=== PATIENT | male | born 1940 | race Caucasian/White ===

== ENCOUNTER 2019-08-28 09:41 | Outpatient (CLI) | payer MEDICARE, OTHER, SELFPAY ==
--- NOTE | 2019-08-28 10:15 | XR_ITS ---
WS: [id number] XR KUB [id number] REASON FOR EXAM: RENAL STONE FINDINGS: Comparisons were made from May 26, 2016. There is postop changes in the mid area suggesting aortic surgery. There is fecal stasis throughout the colon. An ill-defined calcified areas seen at the L4 level on th e right which may represent a stone. The left kidney shows a calcified density consistent with a renal calculus. Measures 4.52 mm An ill-defined calcified area adjacent to the L4 vertebra transverse process on the right weren't germán e if this is a stone or not.. XR/XR KUB [id number] IMPRESSION: Left renal calculus measures 4.52 mm.
== END 2019-08-28 09:42 | disposition home or self-care (01) ==
LOC: RAD 09:54
PROVIDERS: PCP Family Medicine; Visit Provider Urology
DX: N20.0 Calculus of kidney (principal)
CPT/HCPCS: 74018; 81001

== ENCOUNTER → 2020-03-18 12:49 | Outpatient (BNVA) | payer MEDICARE, OTHER, SELFPAY | PROVIDERS: PCP Family Medicine; Referring Provider Dermatology; Visit Provider Dermatology | DX: Z85.828 Personal history of other malignant neoplasm of skin (principal); L57.0 Actinic keratosis; D48.9 Neoplasm of uncertain behavior, unspecified; L82.1 Other seborrheic keratosis | CPT/HCPCS: 11102; 17000; 17003; 88304; 88305; 99203; 99204 ==

== ENCOUNTER 2021-04-27 07:46 | Outpatient (CLI) | payer MEDICARE, OTHER, SELFPAY ==
--- NOTE | 2021-04-27 07:49 | XR_ITS ---
WS: [id number] KUB, AP view, 04/27/2021 Clinical Data: renal stone Comparison: KUB, 08/28/2019. Findings: No abnormal intraabdominal masses or calcifications are seen. There is no dilatated small bowel or ev idence of obstruction. There is a large amount of fecal material throughout the colon. There are sutures overlying the lumba r vertebral bodies and scattered in the left upper quadrant. There is a phlebolith in the right true pelvis. XR/XR KUB [id number] Impression: Large amount of fecal material throughout the colon.
== END 2021-04-27 07:47 | disposition home or self-care (01) ==
PROVIDERS: PCP Family Medicine; Visit Provider Urology
DX: N20.0 Calculus of kidney (principal); N40.1 Benign prostatic hyperplasia with lower urinary tract symptoms
CPT/HCPCS: 74018; 81003

== ENCOUNTER 2022-05-07 10:05 | Outpatient (CLI) | payer MEDICARE, OTHER, SELFPAY ==
--- NOTE | 2022-05-07 | US_ITS ---
WS: [id number] RENAL ULTRASOUND HISTORY: CKD, history of LEFT nephrectomy. COMPARISON: 05/26/2016 TECHNIQUE: 2-D and color Doppler imaging of the kidney submitted. Right kidney: 12.8 cm x 6.0 cm x 6.8 cm. Mild compensatory hypertrophy of the kidney. No cortical thinning. No hydronephrosis or mass. Left kidney: Absent kidney. No mass in the renal bed. Aorta: Normal. Urinary Bladder: Well-distended bladder. Prostate gland enlargement encroaching into the base of the urinary bladder. Prostate measures 4.3 x 3.9 x 4.6 cm. US/US renal BI* [id number] IMPRESSION: 1. Normal RIGHT kidney with mild compensatory hypertrophy. 2. Absent LEFT kidney. 3. Prostate gland enlargement.
== END 2022-05-07 10:06 | disposition home or self-care (01) ==
LOC: RAD 10:07
PROVIDERS: PCP Family Medicine; Visit Provider Internal Medicine
DX: N18.31 Chronic kidney disease, stage 3a (principal); N40.0 Benign prostatic hyperplasia without lower urinary tract symptoms; Z90.5 Acquired absence of kidney
CPT/HCPCS: 76770

== ENCOUNTER 2022-07-28 12:37 | Outpatient (CLI) | payer MEDICARE, OTHER, SELFPAY ==
--- NOTE | 2022-07-28 12:44 | MR_ITS ---
WS: [id number] MRI HEAD WITHOUT CONTRAST TECHNIQUE: Sagittal T1, T2 axial, T2 axial FLAIR, axial and coronal T1 images, axial susceptibility w eighted imaging, axial diffusion weighted images, and coronal T2 images were obtained. CLINICAL INFORMATION: MEMORY DEFICIT COMPARISON: None. FINDINGS: No evidence of restricted diffusion to suggest acute ischemia. Ventricular system and basilar cistern s are patent. Mild to moderate small vessel changes with moderate parenchymal volume loss. This is sl ightly worse in the parietal lobes bilaterally. Normal posterior fossa. Normal vascular flow voids at the skull base. No extra-axial fluid collections. No evidence of mass or mass effect. Mild mucosal t hickening in the paranasal sinuses. Mastoid air cells well aerated. No hemosiderin on susceptibly weighted images. Normal optic chiasm and pituitary infundibulum. Modera te atrophy temporal lobes and hippocampal formations. Normal cavernous sinuses and Meckel's cave. MR/MR head wo con* [id number] IMPRESSION: 1. No evidence of restricted diffusion to suggest acute ischemia. 2. Mild to moderate small vessel changes with moderate parenchymal volume loss more prominent in the parietal lobes. 3. Moderate atrophy temporal lobes and hippocampal formations LEFT greater katherine n RIGHT. 4. No hemosiderin on susceptibly weighted images. 5. No other acute findings.
== END 2022-07-28 12:38 | disposition home or self-care (01) ==
LOC: RAD 12:38
PROVIDERS: PCP Family Medicine; Visit Provider Emergency Medicine Emergency Medical Services
DX: R41.3 Other amnesia (principal); G31.89 Other specified degenerative diseases of nervous system
CPT/HCPCS: 70551

== ENCOUNTER 2022-08-03 14:04 | Outpatient (CLI) | payer MEDICARE, OTHER, SELFPAY ==
--- NOTE | 2022-08-03 | US_ITS ---
WS: [id number] THYROID ULTRASOUND HISTORY: NODULES COMPARISON: None available. Right lobe: 1.8 cm x 2.4 cm x 4.8 cm (w x ap x l). Volume: 10.5 cm3. Mildly enlarged heterogeneous thyroid. There are a few very small hypoechoic nodules. No mass or echo genic foci. Left lobe: 1.4 cm x 1.9 cm x 4.7 cm (w x ap x l). Volume: 6.4 cm3. Normal size gland. Spongiform nodule inferior pole measures 11 x 5 x 9 mm. There is a colloid cyst al so. Hypoechoic nodule measuring 8 x 6 x 9 mm in the LEFT isthmus. No echogenic foci. Isthmus: 0.4 cm. US/US thyroid [id number] IMPRESSION: 1. Mild thyromegaly. 2. Likely benign-appearing nodules LEFT thyroid as described above. No FNA nec essary at this time. Consider yearly thyroid ultrasound evaluation.
== END 2022-08-03 14:05 | disposition home or self-care (01) ==
PROVIDERS: PCP Family Medicine; Visit Provider Family Medicine
DX: E04.2 Nontoxic multinodular goiter (principal)
CPT/HCPCS: 76536

== ENCOUNTER 2023-05-19 09:07 | Outpatient (CLI) | payer MEDICARE, OTHER, SELFPAY ==
[2023-05-19 09:39] LABS: Basophils % 0.4 %; Eosinophils # 0.5 10^3/uL (0.0-0.8); Eosinophils % 6.2 %; Hematocrit 50.2 % (37-53); Lymphocytes % 14.1 %; Mean Corpuscular HGB Conc 33.9 g/dL (30-55); Mean Corpuscular Hemoglobin 30.5 pg (27-33); Mean Corpuscular Volume 90.1 fl (82-101); Mean Platelet Volume 9.9 fL (7.4-10.4); Monocytes # 0.6 10^3/uL (0.2-0.9); Neutrophils # 5.15 10^3/uL (1.8-7.7); Neutrophils % 70.8 %; Nucleated Red Blood Cells % 0 %; Platelet Count 144 10^3/cmm (157-399); Red Blood Count 5.57 10^6/uL (3.85-5.65); Red Cell Distribution Width 12.5 % (12.1-15.1); White Blood Count 7.28 10^3/uL (3.29-11.43)
[2023-05-19 10:02] LABS: Albumin Level 4.2 g/dL (3.5-5.2); Anion Gap 12.1 (5-19); Blood Urea Nitrogen 16 mg/dL (8-23); Carbon Dioxide 30 mmol/L (22-29); Chloride 105 mmol/L (98-107); Glucose 72 mg/dL (65-115); Phosphorus 2.8 mg/dL (2.5-4.5); Potassium 4.1 mmol/L (3.5-5.1); Sodium 143 mmol/L (136-145)
[2023-05-19 10:03] LABS: Calcium 9.8 mg/dL (8.5-10.5)
[2023-05-19 10:09] LABS: Creatinine Urine, Random 93 mg/dL (39-259); Microalbum Creatinine Ratio Ur 11 mg/dL (0-20); Microalbumin Random Urine 1 ug/dL (0-20)
[2023-05-19 10:09] LABS: Parathyroid Hormone 53.8 pg/mL (15-65)
== END 2023-05-19 09:08 | disposition home or self-care (01) ==
LOC: LAB 09:13
PROVIDERS: PCP Family Medicine; Visit Provider Internal Medicine
DX: N18.31 Chronic kidney disease, stage 3a (principal)
CPT/HCPCS: 36415; 80069; 82044; 82310; 83970; 85025

== ENCOUNTER → 2023-10-27 08:38 | Outpatient (BNVA) | payer MEDICARE, OTHER, SELFPAY | PROVIDERS: PCP Family Medicine; Visit Provider Dermatology | DX: C44.519 Basal cell carcinoma of skin of other part of trunk (principal) | CPT/HCPCS: 11603; 13101 ==

== ENCOUNTER 2023-12-01 12:27 | Outpatient (CLI) | payer OTHER, SELFPAY ==
[2023-12-01 13:22] LABS: Add Urine Microscopic? NO; Charge for UA Resulting for Rev
[2023-12-01 13:43] LABS: Alanine Aminotransferase 17 U/L (0-41); Alkaline Phosphatase 78 U/L (40-130); Aspartate Amino Transferase 15 U/L (0-40); Blood Urea Nitrogen 18 mg/dL (8-23); Carbon Dioxide 25 mmol/L (22-29); Chloride 105 mmol/L (98-107); Globulin 2.3 g/dL (1.3-4.6); Glucose 104 mg/dL (65-115); Osmolality Calculated 290 mOsm/kg (285-295); Sodium 139 mmol/L (136-145); Total Bilirubin 0.9 mg/dL (0.15-1.2); Total Protein 6.3 g/dL (6.6-8.7)
[2023-12-01 13:45] LABS: Specific Gravity, Urine 1.005 (1.005-1.030); Urine Appearance Clear (CLEAR); Urine Color Yellow (Yellow); pH Urine 7 (5-7)
[2023-12-01 13:46] LABS: Bilirubin Urine Neg (Negative); Blood Urine Neg (Negative); Glucose Urine UA Norm (Normal); Ketones Urine Negative (Negative); Leukocyte Esterase Urine Negative (Negative); Nitrate Urine Negative (Negative); Protein Urine Neg (Negative); Urobilinogen Urine Norm (Negative)
== END 2023-12-01 12:28 | disposition home or self-care (01) ==
PROVIDERS: PCP Family Medicine; Visit Provider Chiropractor
DX: I10 Essential (primary) hypertension (principal); J61 Pneumoconiosis due to asbestos and other mineral fibers
CPT/HCPCS: 36415; 80053; 81003; 94010

== ENCOUNTER → 2024-04-18 10:54 | Outpatient (BNVA) | payer MEDICARE, OTHER, SELFPAY | PROVIDERS: PCP Family Medicine; Visit Provider Nurse Practitioner Family | DX: L82.1 Other seborrheic keratosis (principal); D22.5 Melanocytic nevi of trunk; L81.4 Other melanin hyperpigmentation; L57.8 Other skin changes due to chronic exposure to nonionizing radiation; L57.0 Actinic keratosis; Z85.828 Personal history of other malignant neoplasm of skin | CPT/HCPCS: 17000; 99213 ==

== ENCOUNTER 2024-05-03 08:45 | Outpatient (CLI) | payer OTHER, SELFPAY ==
[2024-05-03 09:43] LABS: Bilirubin Urine Negative (Negative); Blood Urine Negative (Negative); Glucose Urine UA Negative (Normal); Ketones Urine Negative (Negative); Leukocyte Esterase Urine Negative (Negative); Nitrate Urine Negative (Negative); Protein Urine Negative (Negative); Specific Gravity, Urine 1.019 (1.005-1.030); Urine Appearance Clear (CLEAR); Urine Color Yellow (Yellow); Urobilinogen Urine 0.2 mg/dL (Negative)
[2024-05-03 09:48] LABS: Add Urine Microscopic? YES; Bacteria Urine None Seen /hpf; Hyaline Casts Urine 0-4 /lpf; RBC Urine 0-2 /hpf (0-2); Squamous Epithelial Cell Urine 0-5 /hpf (0-5); WBC Urine 0-5 /hpf (0-5)
[2024-05-03 09:53] LABS: Alanine Aminotransferase 17 U/L (0-41); Albumin Level 4.3 g/dL (3.5-5.2); Alkaline Phosphatase 88 U/L (40-130); Anion Gap 14.2 (5-19); Aspartate Amino Transferase 16 U/L (0-40); Blood Urea Nitrogen 20 mg/dL (8-23); Calcium 9.4 mg/dL (8.5-10.5); Carbon Dioxide 28 mmol/L (22-29); Chloride 104 mmol/L (98-107); Glucose 118 mg/dL (65-115); Osmolality Calculated 298 mOsm/kg (285-295); Potassium 4.2 mmol/L (3.5-5.1); Sodium 142 mmol/L (136-145); Total Bilirubin 0.6 mg/dL (0.15-1.2); Total Protein 6.3 g/dL (6.6-8.7)
== END 2024-05-03 08:46 | disposition home or self-care (01) ==
LOC: LAB 08:48
PROVIDERS: PCP Family Medicine; Visit Provider Chiropractor
DX: N18.9 Chronic kidney disease, unspecified (principal)
CPT/HCPCS: 36415; 80053; 81001

== ENCOUNTER 2024-05-22 08:58 | Outpatient (CLI) | payer OTHER, SELFPAY ==
[2024-05-22 09:45] LABS: Basophils % 0.2 %; Eosinophils # 0.4 10^3/uL (0.0-0.8); Eosinophils % 5.2 %; Hematocrit 50.6 % (37-53); Lymphocytes % 11.3 %; Mean Corpuscular HGB Conc 33.6 g/dL (30-55); Mean Corpuscular Hemoglobin 29.9 pg (27-33); Mean Corpuscular Volume 89.1 fl (82-101); Monocytes # 0.5 10^3/uL (0.2-0.9); Monocytes % 5.9 %; Neutrophils # 6.49 10^3/uL (1.8-7.7); Nucleated Red Blood Cells % 0 %; Platelet Count 142 10^3/cmm (157-399); Red Blood Count 5.68 10^6/uL (3.85-5.65); Red Cell Distribution Width 12.6 % (12.1-15.1); White Blood Count 8.43 10^3/uL (3.29-11.43)
[2024-05-22 10:01] LABS: Creatinine Urine, Random 129 mg/dL (39-259); Microalbum Creatinine Ratio Ur 8 mg/dL (0-20); Microalbumin Random Urine 1 ug/dL (0-20)
[2024-05-22 10:03] LABS: Albumin Level 4.1 g/dL (3.5-5.2); Blood Urea Nitrogen 19 mg/dL (8-23); Calcium 9.4 mg/dL (8.5-10.5); Calcium 9.5 mg/dL (8.5-10.5); Carbon Dioxide 27 mmol/L (22-29); Chloride 104 mmol/L (98-107); Glucose 134 mg/dL (65-115); Phosphorus 2.2 mg/dL (2.5-4.5); Sodium 142 mmol/L (136-145)
[2024-05-22 10:10] LABS: Parathyroid Hormone 48.6 pg/mL (15-65)
[2024-05-22 10:18] LABS: 25 Hydroxy Vitamin D 47 ng/mL (30-100)
== END 2024-05-22 08:59 | disposition home or self-care (01) ==
PROVIDERS: PCP Family Medicine; Visit Provider Internal Medicine Nephrology
DX: N18.31 Chronic kidney disease, stage 3a (principal); Z90.5 Acquired absence of kidney
CPT/HCPCS: 36415; 80069; 82044; 82306; 82310; 83970; 85025

== ENCOUNTER 2024-06-08 09:02 | Outpatient (CLI) | payer OTHER, SELFPAY ==
--- NOTE | 2024-06-08 09:10 | MRR_ITS ---
PROCEDURE INFORMATION: Exam: MR Head Without Contrast Exam date and time: 06/08/2024 9:40 AM Age: 83 years old Clinical indication: Altered mental status/memory loss; Patient HX: HX of kidney cancer, memory loss, difficulty speaking, ; additional info: Memory deficit TECHNIQUE: Imaging protocol: Magnetic resonance imaging of the head without contrast. COMPARISON: MR head wo con* [id number] 07/28/2022 1:15 PM FINDINGS: Limitations: Suboptimal evaluation of multiple sequences secondary to patient motion. Brain: Mild nonspecific periventricular and subcortical T2 hyperintensity which may be related to microvascular ischemic changes. No areas of reduced diffusion to suggest acute ischemic infarct. Cerebral ventricles: The ventricles and sulci are prominent in size compatible with moderate atrophy. Bones: Unremarkable. Paranasal sinuses: No fluid levels. Mastoid air cells: Normal as visualized. No mastoid effusion. Orbital cavities: Orbits and globes are intact. Soft tissues: Unremarkable. MR/MR head wo con* [id number] IMPRESSION: No acute infarct.
--- NOTE | 2024-06-08 09:10 | USCV_ITS ---
Edelmira Tamiko Age: 83 Gender: M : 1940 Exam Date: 06/08/2024 10:38 Ordering Phys: Claire Kirkpatrick MD Technologist: [employer] Exam Location: [facility] [place] Indication: memory loss Risk Factors: Previous Vascular Surgery: Right Brachial BP: / Left Brachial BP: / Right Left Velocity (cm/s) Spectral Plaque Velocity (cm/s) Spectral Plaque Syst/Diast Broadening Syst/Diast Broadening 80.20/ 18.00 None Prox CCA 89.30 / 17.00 59.50/ 16.70 None Mid CCA 90.80 / 16.80 44.10/ 13.10 Distal CCA 50.60 / 11.70 42.90/ 10.70 Prox ICA 56.00 / 19.90 49.20/ 17.00 Mid ICA 66.00 / 24.10 65.40/ 22.40 Distal ICA 59.10 / 20.60 71.30 ECA 61.60 1.50 ICA/CCA 1.30 Antegrade Vertebral Antegrade 30.90/ 8.30 cm/s 24.50/ 5.90 cm/s Tri Subclavian Tri 112.3 58.70 0 FINDINGS Comparison: none available. No significant elevation of systolic or diastolic velocities. Waveforms are normal. Mild plaque at the bifurcations. CONCLUSIONS Bilateral ICA stenosis less than 50%. Minimal carotid atherosclerosis. Dr. Rena Xiao DO (Electronically Signed) Final Date: 08 June 2024 11:53 S
== END 2024-06-08 09:03 | disposition home or self-care (01) ==
PROVIDERS: PCP Family Medicine; Visit Provider Family Medicine
DX: D04.9 Carcinoma in situ of skin, unspecified (principal); Z77.29 Contact with and (suspected) exposure to other hazardous substances; A04.71 Enterocolitis due to Clostridium difficile, recurrent; I10 Essential (primary) hypertension; M79.7 Fibromyalgia
CPT/HCPCS: 70551; 93880

== ENCOUNTER 2024-07-04 08:59 | Emergency (ER) | payer OTHER, SELFPAY ==
[2024-07-04 09:20] VITALS: BP 100/55; PULSE 75; RESP 17; TEMP 37.4; O2SAT 93; BMI 23.0
--- NOTE | 2024-07-04 10:06 | XRR_ITS ---
PROCEDURE INFORMATION: Exam: XR Chest Exam date and time: 07/04/2024 10:24 AM Age: 83 years old Clinical indication: Cough and shortness of breath; Additional info: Possible sepsis TECHNIQUE: Imaging protocol: Radiologic exam of the chest. Views: 1 view. COMPARISON: CR XR KUB [id number] 04/27/2021 8:01 AM FINDINGS: Lungs: Mild right basilar atelectasis. No focal consolidation. Pleural spaces: No significant pleural effusion. No definitive pneumothorax. Heart/Mediastinum: Cardiomediastinal silhouette is unremarkable. Vasculature: Mild tortuosity of the descending thoracic aorta. Bones/joints: Unremarkable. XR/XR chest 1V portable [id number] IMPRESSION: No acute cardiopulmonary disease.
[2024-07-04 10:30] LABS: Basophils % 0.1 %; Eosinophils % 0.1 %; Hematocrit 44.5 % (37-53); Lymphocytes # 0.5 10^3/uL (0.8-4.8); Lymphocytes % 6.7 %; Mean Corpuscular HGB Conc 34.2 g/dL (30-55); Mean Corpuscular Hemoglobin 30.3 pg (27-33); Mean Corpuscular Volume 88.6 fl (82-101); Mean Platelet Volume 10.4 fL (7.4-10.4); Monocytes # 0.8 10^3/uL (0.2-0.9); Monocytes % 10.6 %; Neutrophils # 5.92 10^3/uL (1.8-7.7); Neutrophils % 82.2 %; Nucleated Red Blood Cells % 0 %; Platelet Count 122 10^3/cmm (157-399); Red Blood Count 5.02 10^6/uL (3.85-5.65); Red Cell Distribution Width 12.5 % (12.1-15.1)
[2024-07-04 10:39] VITALS: BP 125/71; PULSE 86
[2024-07-04 10:39] LABS: Lactic Sepsis W/Reflex 1.1 mmol/L (0.5-2.2)
[2024-07-04] MEDS: sodium chloride 0.9% 2,245.29 ML 2245.29 ML IV (10:39)
[2024-07-04 10:40] LABS: Alanine Aminotransferase 41 U/L (0-41); Albumin Level 3.4 g/dL (3.5-5.2); Alkaline Phosphatase 64 U/L (40-130); Aspartate Amino Transferase 46 U/L (0-40); Blood Urea Nitrogen 22 mg/dL (8-23); Calcium 9.4 mg/dL (8.5-10.5); Carbon Dioxide 26 mmol/L (22-29); Chloride 96 mmol/L (98-107); Creatinine Clr Calc Pharmacy 45.7444; Globulin 2.4 g/dL (1.3-4.6); Glucose 126 mg/dL (65-115); Magnesium 1.9 mg/dL (1.7-2.3); Osmolality Calculated 283 mOsm/kg (285-295); Sodium 134 mmol/L (136-145); Total Bilirubin 0.8 mg/dL (0.15-1.2); Total Protein 5.8 g/dL (6.6-8.7)
--- NOTE | 2024-07-04 10:55 | ECG_ITS ---
[facility] Test Date: 2024-07-04 Pat Name: Tamiko Hickey Department: Room: Gender: Male [employer] Advisor: : 1940 Requested By: Vicky Tejeda Order Number: [id number] Mukesh MD: Juan J Jara M.D. Measurements Intervals [place] Rate: 61 P: 22 [place]: 151 QRS: 6 QRSD: 90 T: 35 QT: 303 QTc: 306 Interpretive Statements SINUS RHYTHM NONSPECIFIC T-WAVE ABNORMALITY No previous ECG available for comparison Electronically Signed On 07-04-2024 17:43:04 FILE KEEPER by Juan J Jara M.D. [email or web address]
--- NOTE | 2024-07-04 11:05 | W.ED.WEAKNES ---
HPI - Weakness General: Chief complaint: Weakness Stated complaint: flue like symptoms Time Seen by Provider: 07/04/24 10:04 History of Present Illness: This patient is an 83-year-old presenting with cough, weakness. He and his were on a cruise and he felt ill on , 7 days ago. He did not seek medical attention while on the cruise. He rested. On returning home he went to the [facility] on Tuesday and had a positive flu a test. He was also told that he had COPD which he had not known previously. They told him if he was getting worse he needed to come back to the ER immediately. Last night he started feeling worse. He had a subjective fever. His cough has worsened somewhat but he says that it is not quite as bad as it was when the illness for started. He has had a few episodes of diarrhea. No vomiting. He has been eating and drinking well. He denies any known history of heart or lung problems. He does have only 1 kidney. He is feeling weak and generally ill. [facility] ED PFS: Medical History (Updated 07/04/24 @ 12:51 by Vicky Augustin MD) History of nonmelanoma skin cancer Malignant neoplasm of kidney History of renal stone Surgical History History of hernia repair History of tonsillectomy History of nephrectomy, left Family History Father , at age 84 No problems noted. Mother , at age 94 No problems noted. Other Alzheimer disease Parkinson disease Social History Smoking and tobacco/nicotine status: never used tobacco/nicotine Alcohol intake: current Alcohol intake frequency: holidays/special occasions only Substance/Drug Use: never Adopted: No Caregiver/support person: No Lives independently: No Household members: spouse Marital status: Current occupational status: retired Physical Exam Const: COMMON NORMALS: no acute distress, patient oriented x3, no limitations and alert GENERAL APPEARANCE: cooperative and comfortable HENMT: HEAD & SCALP: normal to inspection FACE & SINUS: normal facial exam Eye: GENERAL EYE: appearance normal, both eyes and all related structures Neck/C-Spine: COMMON NORMALS: supple, no meningeal signs and no JVD Chest: COMMONS NORMALS: normal inspection of the chest Resp: COMMON NORMALS: normal respiratory effort and No use of accessory muscles OTHER: Rhonchi in bilateral bases Cardio: COMMON NORMALS: no JVD, regular rate, regular rhythm and No murmurs present (Cardio) RATE: regular rate RHYTHM: regular rhythm GI: COMMON NORMALS: Normal to inspection, nondistended, normoactive bowel sounds present, Soft to palpation and non-tender INSPECTION: Yes normal to inspection AUSCULTATION: Yes normoactive bowel sounds PALPATION: Yes Soft to palpation Back/Pelvis: COMMON NORMALS: thoracic and lumbar spine normal to inspection Extremity: COMMON NORMALS: normal to inspection Neuro: COMMON NORMALS: patient oriented x3, moves all extremities, no focal motor deficits and no sensory deficits noted SENSORIUM/ORIENTATION: Yes alert MENINGEAL SIGNS: Yes no meningeal signs OTHER: Hard of hearing, bilateral hearing aids Psych: COMMON NORMALS: mental status grossly normal, cooperative and normal affect Skin: COMMON NORMALS: no rashes or lesions noted and turgor normal GENERAL SKIN EXAM: no rashes or lesions noted and turgor normal Course Vital Signs: Vital signs: Vital Signs Temperature 99.4 F 07/04/24 09:20 Pulse Rate 68 07/04/24 13:08 Respiratory Rate 20 H 07/04/24 12:28 Blood Pressure 121/93 07/04/24 13:08 Pulse Oximetry 98 07/04/24 13:08 Oxygen Delivery Me thod Room Air 07/04/24 11:56 MDM - Weakness Medical Decision Making Positive flu test on Tuesday. Illness since . This would be day 7 of illness. He feels like he is getting worse although unable to really provide specifics on what is worse. His blood pressure in the waiting room was 100 systolic which is significantly low for him as he has a history of some hypertension. Because of this I started the sepsis protocol although at this point I do not have a bacterial infection source. No evidence of sepsis in this patient. His main complaint is his cough. Chest xray did not show a pneumonia - but given the worsening of symptoms on day 7 of his viral illness - concerning for possible secondary bacterial bronchitis so I will start antibiotics. Also meds for cough at home. Sat around 92% while in the ED. They do have a pulse oximeter at home and will keep an eye on his oxygenation. Lab Data 07/04/24 10:15 07/04/24 10:15 Radiology Impressions Chest X-Ray 07/04/24 10:06 IMPRESSION: No acute cardiopulmonary disease. Laboratory Results WBC 7.20 10^3/uL (3.29-11.43) 07/04/24 10:15 RBC 5.02 10^6/uL (3.85-5.65) 07/04/24 10:15 Hgb 15.20 g/dL (11.27-16.99) 07/04/24 10:15 Hct 44.5 % (37-53) 07/04/24 10:15 MCV 88.6 fl (82-101) 07/04/24 10:15 MCH 30.3 pg (27-33) 07/04/24 10:15 MCHC 34.2 g/dL (30-55) 07/04/24 10:15 RDW 12.5 % (12.1-15.1) 07/04/24 10:15 Plt Count 122 10^3/cmm (157-399) L 07/04/24 10:15 MPV 10.4 fL (7.4-10.4) 07/04/24 10:15 Neut % (Auto) 82.2 % 07/04/24 10:15 Lymph % (Auto) 6.7 % 07/04/24 10:15 Saline % (Auto) 10.6 % 07/04/24 10:15 Eos % (Auto) 0.1 % 07/04/24 10:15 Baso % (Auto) 0.1 % 07/04/24 10:15 Neut # (Auto) 5.92 10^3/uL (1.8-7.7) 07/04/24 10:15 Lymph # (Auto) 0.5 10^3/uL (0.8-4.8) L 07/04/24 10:15 Saline # (Auto) 0.8 10^3/uL (0.2-0.9) 07/04/24 10:15 Eos # (Auto) 0.0 10^3/uL (0.0-0.8) 07/04/24 10:15 Baso # (Auto) 0.0 10^3/uL (0.0-0.1) 07/04/24 10:15 Nucleated RBC % (auto) 0 % 07/04/24 10:15 Nucleated RBCs # 0.0 /100WBC 07/04/24 10:15 Sodium 134 mmol/L (136-145) L 07/04/24 10:15 Potassium 4.0 mmol/L (3.5-5.1) 07/04/24 10:15 Chloride 96 mmol/L (98-107) L 07/04/24 10:15 Carbon Dioxide 26 mmol/L (22-29) 07/04/24 10:15 Anion Gap 16.0 (5-19) 07/04/24 10:15 BUN 22 mg/dL (8-23) 07/04/24 10:15 Creatinine 1.3 mg/dL (0.7-1.2) H 07/04/24 10:15 GFR Calculation Not Reportable 07/04/24 10:15 Glucose 126 mg/dL (65-115) H 07/04/24 10:15 Calculated Osmolality 283 mOsm/kg (285-295) L 07/04/24 10:15 Lactic Acid 1.1 mmol/L (0.5-2.2) 07/04/24 10:15 Calcium 9.4 mg/dL (8.5-10.5) 07/04/24 10:15 Magnesium 1.9 mg/dL (1.7-2.3) 07/04/24 10:15 Total Bilirubin 0.8 mg/dL (0.15-1.2) 07/04/24 10:15 AST 46 U/L (0-40) H 07/04/24 10:15 ALT 41 U/L (0-41) 07/04/24 10:15 Alkaline Phosphatase 64 U/L (40-130) 07/04/24 10:15 Total Protein 5.8 g/dL (6.6-8.7) L 07/04/24 10:15 Albumin 3.4 g/dL (3.5-5.2) L 07/04/24 10:15 Globulin 2.4 g/dL (1.3-4.6) 07/04/24 10:15 Urine Color Dark yellow (Yellow) A 07/04/24 11:01 Urine Appearance Clear (CLEAR) 07/04/24 11:01 Urine pH 6.0 (5-7) 07/04/24 11:01 Ur Specific [place] 1.021 (1.005-1.030) 07/04/24 11:01 Urine Protein 1+ (Negative) A 07/04/24 11:01 Urine Glucose (UA) Negative (Normal) 07/04/24 11:01 Urine Ketones 1+ (Negative) H 07/04/24 11:01 Urine Blood Negative (Negative) 07/04/24 11:01 Urine Nitrate Negative (Negative) 07/04/24 11:01 Urine Bilirubin Negative (Negative) 07/04/24 11:01 Urine Urobilinogen 1.0 mg/dL (Negative) 07/04/24 11:01 Ur Leukocyte Esterase Negative (Negative) 07/04/24 11:01 Urine RBC 0-2 /hpf (0-2) 07/04/24 11:01 Urine WBC 0-5 /hpf (0-5) 07/04/24 11:01 Ur Squamous Epith Cells 0-5 /hpf (0-5) 07/04/24 11:01 Amorphous Sediment Not Reportable 07/04/24 11:01 Urine Bacteria None seen /hpf (NONE) 07/04/24 11:01 Hyaline Casts 0.40 /lpf 07/04/24 11:01 All radiology interpretation(s) finalized by discharge Discharge Plan Discharge Patient Disposition: Home Clinical Impression: Influenza A, Bronchitis, Cough Condition: Stable Prescriptions: New doxycycline hyclate 100 mg capsule 100 mg PO BID 10 Days Qty: 20 0RF No Action cholecalciferol (vitamin D3) 10 mcg (400 unit) capsule 10 mcg PO DAILY coenzyme Q10 10 mg capsule 10 mg PO DAILY hydrochlorothiazide 25 mg tablet 12.5 mg PO DAILY Barnard 3-6-9 1,200 mg capsule 1 cap PO BID aspirin 325 mg tablet 325 mg PO DAILY lisinopril 2.5 mg tablet 2.5 mg PO DAILY sildenafil 100 mg tablet See Rx Instructions PO .COMPLEX PRN (Reason: Sexual Activity) Rx Instructions: take 50mg every five days orally PRN; administer 30 minutes to 4 hours before activity prednisone 20 mg tablet 40 mg PO DAILY 5 Days Qty: 10 0RF atorvastatin 20 mg tablet 10 mg PO DAILY tamsulosin 0.4 mg capsule 0.4 mg PO DAILY Rx Instructions: TAKE ONE TABLET BY MOUTH ONCE DAILY FOR BPH Discharge Orders: Discharge ED (Routine); Ordered 07/04/24 Ordered By: Vicky Augustin Referrals: Claire Kirkpatrick MD [Primary Care Provider] - Discharge Diet: Advance as tolerated Discharge Activity: Limit activity as instructed Patient Instructions: Opioid Safety, Pain Management Activity Restrictions/Additional Instructions: Return to the ED if oxygen is lower than 90% for more than 10 minutes. Return as well for any other worsening or concerns. Coding Level of Care Code ED Bark Grinder for Chg Fwd Related Data Home Medications Medication Instructions Recorded Confirmed aspirin 325 mg tablet 325 mg PO DAILY 08/28/19 07/04/24 fish, borage, flaxseed oils-omega 1 cap PO BID 08/28/19 07/04/24 3,6,9 comb no.1 1,200 mg capsule (Barnard 3-6-9) hydrochlorothiazide 25 mg tablet 12.5 mg PO DAILY 08/28/19 07/04/24 cholecalciferol (vitamin D3) 10 10 mcg PO DAILY 04/27/21 07/04/24 mcg (400 unit) capsule coenzyme Q10 10 mg capsule 10 mg PO DAILY 04/27/21 07/04/24 lisinopril 2.5 mg tablet 2.5 mg PO DAILY 01/13/23 07/04/24 sildenafil 100 mg tablet See Rx Instructions PO .COMPLEX 01/13/23 07/04/24 PRN Sexual Activity atorvastatin 20 mg tablet 10 mg PO DAILY 07/04/24 07/04/24 tamsulosin 0.4 mg capsule 0.4 mg PO DAILY 07/04/24 07/04/24 Previous Rx's Medication Instructions Recorded prednisone 20 mg tablet 40 mg (2 x 20 mg) PO DAILY 5 days 01/13/23 #10 tabs doxycycline hyclate 100 mg capsule 100 mg PO BID 10 days #20 caps 07/04/24 Allergies Allergy/AdvReac Type Severity Reaction Status Date / Time Iodinated Contrast Media AdvReac JUST FELT Verified 01/13/23 15:50 COLD
[2024-07-04 11:21] LABS: Bilirubin Urine Negative (Negative); Blood Urine Negative (Negative); Glucose Urine UA Negative (Normal); Ketones Urine 1+ (Negative); Leukocyte Esterase Urine Negative (Negative); Nitrate Urine Negative (Negative); Protein Urine 1+ (Negative); Specific Gravity, Urine 1.021 (1.005-1.030); Urine Appearance Clear (CLEAR); Urine Color Dark Yellow (Yellow)
[2024-07-04 11:26] LABS: Add Urine Microscopic? YES; Bacteria Urine None Seen /hpf; RBC Urine 0-2 /hpf (0-2); Squamous Epithelial Cell Urine 0-5 /hpf (0-5); WBC Urine 0-5 /hpf (0-5)
--- NOTE | 2024-07-04 11:48 | PC.NURSE ---
per Dr. Augustin to cancel normal saline bolus, pt received 1L NS total, wasted 2,245mL NS
[2024-07-04 11:56] VITALS: BP 121/60; PULSE 64; RESP 14; O2SAT 92
[2024-07-04 12:28] VITALS: BP 113/64; PULSE 67; RESP 20; O2SAT 95
--- NOTE | 2024-07-04 12:53 | PC.NURSE ---
per Dr. Augustin verbal order to administered x1 Promethazine 25mg tab PO NOW, and send remaining x4 tabs home with patient. this nurse removed additional doses in the Pyxis to send pt home with tabs d/t pharmacy not being open on .
[2024-07-04] MEDS: doxycycline 100 mg Tablet PO (12:57)
[2024-07-04] MEDS: promethazine 25 mg Tablet PO (12:57)
[2024-07-04 13:08] VITALS: BP 121/93; PULSE 68; O2SAT 98
== END 2024-07-04 13:09 | disposition home or self-care (01) ==
PROVIDERS: Emergency Provider Emergency Medicine; PCP Family Medicine
DX: J10.89 Influenza due to other identified influenza virus with other manifestations (principal); J40 Bronchitis, not specified as acute or chronic; Z85.828 Personal history of other malignant neoplasm of skin; Z85.528 Personal history of other malignant neoplasm of kidney
CPT/HCPCS: 36415; 71045; 80053; 81001; 83605; 83735; 85025; 87040; 93005; 96360; 99285; J7030; Q0169

== ENCOUNTER → 2024-10-17 08:19 | Outpatient (BNVA) | payer MEDICARE, OTHER, SELFPAY | PROVIDERS: PCP Family Medicine; Visit Provider Nurse Practitioner Family | DX: L82.1 Other seborrheic keratosis (principal); L81.4 Other melanin hyperpigmentation; D18.01 Hemangioma of skin and subcutaneous tissue; L57.8 Other skin changes due to chronic exposure to nonionizing radiation; L73.8 Other specified follicular disorders; Z08 Encounter for follow-up examination after completed treatment for malignant neoplasm; Z85.828 Personal history of other malignant neoplasm of skin; L53.8 Other specified erythematous conditions; L29.89 Other pruritus; Z78.9 Other specified health status; L57.0 Actinic keratosis | CPT/HCPCS: 17000; 17110; 99213 ==

== ENCOUNTER → 2024-10-25 13:01 | Outpatient (BNVA) | payer OTHER, SELFPAY | PROVIDERS: PCP Family Medicine; Visit Provider Student in an Organized Health Care Education/Training Program | DX: R19.4 Change in bowel habit (principal) | CPT/HCPCS: 99204 ==

== ENCOUNTER 2024-12-04 10:22 | Day surgery (SDC) | payer OTHER, SELFPAY ==
[2024-12-04 10:41] VITALS: BP 164/88; PULSE 63; RESP 18; TEMP 36.2; O2SAT 95
[2024-12-04 10:42] VITALS: BMI 23.6
[2024-12-04] MEDS: sodium chloride 0.9% 1,000 ML 15 ML IV (10:48)
--- NOTE | 2024-12-04 11:10 | ANES.PREANE2 ---
Pre-Anesthetic Assessment Height/Weight: Height 1.8 m Weight 76.657 kg Temp Pulse Resp BP Pulse Ox O2 Del Method 97.1 F L 63 18 164/88 95 Room Air 12/04/24 10:41 12/04/24 10:41 12/04/24 10:41 12/04/24 10:41 12/04/24 10:41 12/04/24 10:41 Operation Date: 12/04/24 11:45 Proposed Procedures p Colonoscopy 86241, G0105, R19.4(Not Applicable) - Jan Long MD Familial anesthetic complications: None Was Beta Seema taken within 24 hours: Yes Was Clonidine taken within 24 hours: N/A Last intake: Intake Last Liquid Date 12/03/24 Last Liquid Time 23:00 Last Solid Date 12/02/24 Social No alcohol and No tobacco Exam alert, oriented x 3, clear to auscultation bilaterally and regular rate & rhythm Airway Mallampati: Class III Dentition: chipped Pulmonary hay fever CV/HEM Hypertension Metabolic Hyperlipidemia Anesthetic Plan ASA status: 3 Anesthesia: MAC Risk of > 500 ml blood loss (7ml/kg in children): No Medications/Allergies Home Medications ?Medication ?Instructions ?Recorded ?Confirmed ?Last Taken ?Type aspirin 325 mg tablet 325 mg PO DAILY 08/28/19 11/29/24 11/29/24 History fish, borage, flaxseed oils-omega 1 cap PO BID 08/28/19 11/29/24 11/29/24 History 3,6,9 comb no.1 1,200 mg capsule (Central 3-6-9) cholecalciferol (vitamin D3) 10 10 mcg PO DAILY 04/27/21 11/29/24 12/03/24 History mcg (400 unit) capsule coenzyme Q10 10 mg capsule 10 mg PO DAILY 04/27/21 11/29/24 12/03/24 History lisinopril 2.5 mg tablet 2.5 mg PO DAILY 01/13/23 11/29/24 12/03/24 History atorvastatin 20 mg tablet 10 mg PO DAILY 07/04/24 11/29/24 12/03/24 History tamsulosin 0.4 mg capsule 0.4 mg PO BID 07/04/24 11/29/24 12/03/24 History metoprolol succinate 25 mg 12.5 mg PO DAILY 10/25/24 11/29/24 12/04/24 History tablet,extended release 24 hr [id number]-DZ-vit [id number]-[id number]-[id number] 1 tab PO DAILY 10/25/24 11/29/24 12/03/24 History [PreserVision AREDS 2 Plus MV] ofloxacin 0.3 % eye drops See Rx Instructions ophthalmic 11/06/24 12/04/24 Unknown Rx (eye) .COMPLEX 3 days #5 mL Allergies Allergy/AdvReac Type Severity Reaction Status Date / Time Iodinated Contrast Media AdvReac JUST FELT Verified 12/04/24 10:56 COLD Current Medications Generic Name Dose Route Start Last Admin Trade Name Freq PRN Reason Stop Dose Admin Sodium Chloride 1,000 mls @ 15 mls/hr 12/04/24 10:30 12/04/24 10:48 Sodium Chloride 0.9% IV 12/05/24 10:29 15 mls/hr .Q24H PRN Administration COLONOSCOPY FLUIDS PFSH Anesthesia Medical History (Updated 11/06/24 @ 09:05 by Shin Boyer DO) History of nonmelanoma skin cancer Malignant neoplasm of kidney History of renal stone Surgical History History of hernia repair History of tonsillectomy History of nephrectomy, left Family History Father , at age 84 No problems noted. Mother , at age 94 No problems noted. Other Alzheimer disease Parkinson disease Social History Smoking and tobacco/nicotine status: never used tobacco/nicotine Alcohol intake: current Alcohol intake frequency: holidays/special occasions only Substance/Drug Use: never Adopted: No Caregiver/support person: No Lives independently: No Household members: spouse Marital status: Current occupational status: retired
--- NOTE | 2024-12-04 11:39 | W.PM.OPSFHP ---
Same Day Surgery H&P Indication for Procedure/HPI DATE OF PROCEDURE: December 04, 2024 CHIEF COMPLAINT/INDICATIONFOR SURGICAL PROCEDURE: changes in bowel habits PREOP DIAGNOSIS: changes in bowel habits PLANNED PROCEDURE: Operation Date: 12/04/24 11:45 Proposed Procedures p Colonoscopy 01558, G0105, R19.4(Not Applicable) - Jan Long MD Medications/Allergies* Home Medications ?Medication ?Instructions ?Recorded ?Confirmed ?Type aspirin 325 mg tablet 325 mg PO DAILY 08/28/19 11/29/24 History fish, borage, flaxseed oils-omega 1 cap PO BID 08/28/19 11/29/24 History 3,6,9 comb no.1 1,200 mg capsule (Rachel 3-6-9) cholecalciferol (vitamin D3) 10 10 mcg PO DAILY 04/27/21 11/29/24 History mcg (400 unit) capsule coenzyme Q10 10 mg capsule 10 mg PO DAILY 04/27/21 11/29/24 History lisinopril 2.5 mg tablet 2.5 mg PO DAILY 01/13/23 11/29/24 History atorvastatin 20 mg tablet 10 mg PO DAILY 07/04/24 11/29/24 History tamsulosin 0.4 mg capsule 0.4 mg PO BID 07/04/24 11/29/24 History metoprolol succinate 25 mg 12.5 mg PO DAILY 10/25/24 11/29/24 History tablet,extended release 24 hr jn-nwb-MX-vit N-dfbipl-dohktsq 1 tab PO DAILY 10/25/24 11/29/24 History [PreserVision AREDS 2 Plus MV] Allergies/Adverse Reactions Allergy/AdvReac Type Severity Reaction Status Date / Time Iodinated Contrast Media AdvReac JUST FELT Verified 12/04/24 10:56 COLD Current Medications: Generic Name Dose Route Start Last Admin Trade Name Freq PRN Reason Stop Dose Admin Sodium Chloride 1,000 mls @ 15 mls/hr 12/04/24 10:30 12/04/24 10:48 Sodium Chloride 0.9% IV 12/05/24 10:29 15 mls/hr .Q24H PRN Administration COLONOSCOPY FLUIDS Pertinent History/Comorbid Conditions* Medical History (Updated 11/06/24 @ 09:05 by Shin Boyer DO) History of nonmelanoma skin cancer Malignant neoplasm of kidney History of renal stone Surgical History (Updated 08/26/19 @ 11:08 by Aniceto West MD) History of hernia repair History of tonsillectomy History of nephrectomy, left Family History (Updated 08/21/19 @ 10:56 by MAIKOL Martino) Father, at age 84 Mother, at age 94 Alzheimer disease Parkinson disease Social History Smoking and tobacco/nicotine status: never used tobacco/nicotine Alcohol intake: current Alcohol intake frequency: holidays/special occasions only Substance/Drug Use: never Adopted: No Caregiver/support person: No Lives independently: No Household members: spouse Marital status: Current occupational status: retired Pertinent Exam Findings alert, oriented x 3, clear to auscultation bilaterally, regular rate & rhythm and procedure specific exam findings abdomen soft, nt, nd Recommendations Risks and benefits of procedure reviewed Surgery/Procedure today Coding Level of Care Code Acute Code for Chg Jacob
[2024-12-04 11:55] VITALS: BP 123/72; PULSE 53; RESP 16; TEMP 36.6; O2SAT 97
[2024-12-04 12:10] VITALS: BP 140/72; PULSE 61; RESP 18; O2SAT 95
--- NOTE | 2024-12-04 12:35 | ANE.PACU2 ---
Inpatient post-anesthesia follow up: Airway intact: Yes Vital signs: Temperature 97.9 F Pulse Rate 61 Respiratory Rate 18 Blood Pressure 140/72 Pulse Oximetry 95 Oxygen Delivery Me thod Room Air Oxygen Flow Rate Fraction of Inspir ed Oxygen Hydration adequate: Yes Nausea and vomiting: No Pain level: 1 Mental status: Baseline
== END 2024-12-04 12:36 | disposition home or self-care (01) ==
PROVIDERS: PCP Family Medicine; Visit Provider Student in an Organized Health Care Education/Training Program
PROC: 0DJD8ZZ Inspection of Lower Intestinal Tract, Via Natural or Artificial Opening Endoscopic (ICD-10-PCS; CPT 45378; principal; 2024-12-04 11:45)
DX: K57.30 Diverticulosis of large intestine without perforation or abscess without bleeding (principal); I10 Essential (primary) hypertension; E78.5 Hyperlipidemia, unspecified; Z85.828 Personal history of other malignant neoplasm of skin; Z85.528 Personal history of other malignant neoplasm of kidney; Z90.5 Acquired absence of kidney; Z79.82 Long term (current) use of aspirin; Z79.899 Other long term (current) drug therapy
CPT/HCPCS: 45378; J2704; J7030

== ENCOUNTER → 2025-04-18 08:09 | Outpatient (BNVA) | payer OTHER, SELFPAY | PROVIDERS: PCP Family Medicine; Visit Provider Nurse Practitioner Family | DX: L57.8 Other skin changes due to chronic exposure to nonionizing radiation (principal); L81.4 Other melanin hyperpigmentation; D17.1 Benign lipomatous neoplasm of skin and subcutaneous tissue of trunk; L82.1 Other seborrheic keratosis; D18.01 Hemangioma of skin and subcutaneous tissue; Z08 Encounter for follow-up examination after completed treatment for malignant neoplasm; Z85.828 Personal history of other malignant neoplasm of skin | CPT/HCPCS: 99213 ==

== ENCOUNTER 2025-05-20 09:11 | Outpatient (CLI) | payer OTHER, SELFPAY ==
[2025-05-20 10:31] LABS: Hematocrit 49.4 % (37-53); Hemoglobin 16.70 g/dL (11.27-16.99); Mean Corpuscular HGB Conc 33.8 g/dL (30-55); Mean Corpuscular Hemoglobin 29.7 pg (27-33); Mean Corpuscular Volume 87.7 fl (82-101); Nucleated Red Blood Cells % 0 %; Platelet Count 173 10^3/cmm (157-399); Red Blood Count 5.63 10^6/uL (3.85-5.65); White Blood Count 9.52 10^3/uL (3.29-11.43)
[2025-05-20 10:52] LABS: Albumin Level 4.0 g/dL (3.5-5.2); Anion Gap 13.3 (5-19); Blood Urea Nitrogen 16 mg/dL (8-23); Calcium 9.6 mg/dL (8.5-10.5); Carbon Dioxide 26 mmol/L (22-29); Chloride 103 mmol/L (98-107); Glucose 111 mg/dL (65-115); Potassium 4.3 mmol/L (3.5-5.1); Sodium 138 mmol/L (136-145)
[2025-05-20 10:56] LABS: Creatinine Urine, Random 61 mg/dL (39-259); Microalbum Creatinine Ratio Ur 16 mg/dL (0-20)
[2025-05-20 10:59] LABS: Calcium 9.5 mg/dL (8.5-10.5)
== END 2025-05-20 09:12 | disposition home or self-care (01) ==
LOC: LAB 09:15
PROVIDERS: PCP Family Medicine; Visit Provider Registered Nurse
DX: N18.31 Chronic kidney disease, stage 3a (principal)
CPT/HCPCS: 36415; 80069; 82044; 82310; 83970; 85025